=== PATIENT | female | born 1990 | race Caucasian/White ===

== ENCOUNTER 2016-07-28 05:27 | Outpatient (CLI) | payer OTHER | END 2016-07-28 09:30 | disposition home or self-care (01) | LOC: GENOP 05:27 | DX: O42.912 Preterm premature rupture of membranes, unspecified as to length of time between rupture and onset of labor, second trimester (principal); Z3A.21 21 weeks gestation of pregnancy | CPT/HCPCS: 76815; 96360; 96372; J3105 ==

== ENCOUNTER → 2016-08-11 | Outpatient (CLI) | payer OTHER ==
[~2016-08-11] MED LIST: COLACE 100MG C100 MG PO; IBUPROFEN600 MG PO; NORCO 5-325 TA1 EACH PO
[2016-08-11 10:04] LABS: HEMOGLOBIN 13.6 gm/dl (12.3-15.3); RED BLOOD COUNT 4.59 M/UL (4.00-5.10); WHITE BLOOD COUNT 11.3 K/UL (4.5-11.0)
== END ==
LOC: GENOP 09:16
PROVIDERS: Obstetrics & Gynecology
DX: Z01.812 Encounter for preprocedural laboratory examination (principal); O32.1XX0 Maternal care for breech presentation, not applicable or unspecified; Z3A.00 Weeks of gestation of pregnancy not specified
CPT/HCPCS: 36415; 81001; 85025

== ENCOUNTER 2016-08-14 05:14 | Inpatient (IN) | payer OTHER ==
[~2016-08-14] VITALS: Ht 162.6 cm; Wt 108.0 kg
[2016-08-16 03:01] LABS: HEMOGLOBIN 11.6 gm/dl (12.3-15.3)
[2016-08-16] MEDS ORDERED: NORCO 5-325 TA1 EACH PO (10:24)
[2016-08-16] MEDS ORDERED: COLACE 100MG C100 MG PO (10:25)
[2016-08-16] MEDS ORDERED: IBUPROFEN600 MG PO (10:25)
== END 2016-08-16 18:36 | disposition home or self-care (01) | DRG 775 ==
LOC: OB 05:14
PROVIDERS: ADMIT Obstetrics & Gynecology
PROC: 10907ZC Drainage of Amniotic Fluid, Therapeutic from Products of Conception, Via Natural or Artificial Opening (ICD-10-PCS; principal; 2016-08-15)
PROC: 10E0XZZ Delivery of Products of Conception, External Approach (ICD-10-PCS; 2016-08-15)
PROC: 0U7C7ZZ Dilation of Cervix, Via Natural or Artificial Opening (ICD-10-PCS; 2016-08-15)
PROC: 3E0234Z Introduction of Serum, Toxoid and Vaccine into Muscle, Percutaneous Approach (ICD-10-PCS; 2016-08-16)
DX: O32.0XX0 Maternal care for unstable lie, not applicable or unspecified (principal); O70.0 First degree perineal laceration during delivery; Z3A.39 39 weeks gestation of pregnancy; Z37.0 Single live birth; Z23 Encounter for immunization; O99.283 Endocrine, nutritional and metabolic diseases complicating pregnancy, third trimester; E03.9 Hypothyroidism, unspecified
CPT/HCPCS: 82800; 85014; 85018; 90715; C9113; J1580; J2274; J2405; J2590; J2765; J2795; J7120